=== PATIENT | male | born 1955 | race Caucasian/White ===

== ENCOUNTER → 2021-03-10 | Outpatient (CLI) | payer MEDICARE ==
[~2021-03-10] MED LIST: ASPIR-LOW81 MG PO; BACTRIM DS TAB1 EACH PO; CLARITIN10 M2 PO; COLACE100 MG PO; FENOFIBRATE145 MG PO; FISH OIL500 MG PO; FLOMAX0.4 MG PO; LEVEMIR100 UNIT/1 SQ; LINZESS145 MCG PO; LIPITOR TAB 2020 MG PO; LISINOPRIL10 MG PO; NABUMETONE500 MG PO; NEURONTIN 400400 MG PO; NITROGLYCERIN0.4 MG SL; NOVOLOG 10100 UNITS/ SQ; PERCOCET 10-321 EACH PO; PHILLIPS' COLO1 EACH PO; PLAVIX 75 MG TA75 MG PO; PREVACID30 MG PO; PROTONIX40 MG PO; SIMVASTATIN40 MG PO; TOPROL XL100 MG PO; TUDORZA PRESS400 MCG INH; VALIUM 5 MG TAB5 MG PO; VENTOLIN HFA 66.7 GM INH; VITAMIN C 500500 MG PO; ZINC SULFATE220 MG PO
== END ==
LOC: LBRF 15:44
DX: E11.628 Type 2 diabetes mellitus with other skin complications (principal); S91.301A Unspecified open wound, right foot, initial encounter
CPT/HCPCS: 87070; 87077; 87186; 87205

== ENCOUNTER → 2021-03-16 | Outpatient (CLI) | payer MEDICARE | LOC: KOH-I 03-15 11:15 | DX: Z01.818 Encounter for other preprocedural examination (principal); S90.921A Unspecified superficial injury of right foot, initial encounter; Z95.1 Presence of aortocoronary bypass graft | CPT/HCPCS: 93926 ==

== ENCOUNTER → 2021-05-04 | Outpatient (CLI) | payer MEDICARE | LOC: OPSV 07:00 | DX: E11.621 Type 2 diabetes mellitus with foot ulcer (principal); E11.40 Type 2 diabetes mellitus with diabetic neuropathy, unspecified; L97.519 Non-pressure chronic ulcer of other part of right foot with unspecified severity | CPT/HCPCS: Q4133 ==

== ENCOUNTER → 2021-05-19 | Outpatient (CLI) | payer MEDICARE | END | disposition home or self-care (01) | LOC: OPSV 07:00 | PROC: 0HRMXK3 Replacement of Right Foot Skin with Nonautologous Tissue Substitute, Full Thickness, External Approach (ICD-10-PCS; principal; 2021-05-19) | DX: E11.621 Type 2 diabetes mellitus with foot ulcer (principal); L97.412 Non-pressure chronic ulcer of right heel and midfoot with fat layer exposed; E11.40 Type 2 diabetes mellitus with diabetic neuropathy, unspecified | CPT/HCPCS: Q4133 ==

== ENCOUNTER → 2021-05-26 | Outpatient (CLI) | payer MEDICARE | LOC: OPSV 07:00 | DX: E11.621 Type 2 diabetes mellitus with foot ulcer (principal); L97.419 Non-pressure chronic ulcer of right heel and midfoot with unspecified severity | CPT/HCPCS: Q4133 ==

== ENCOUNTER → 2021-06-16 | Outpatient (CLI) | payer MEDICARE | LOC: OPSV 06:59 | DX: E11.621 Type 2 diabetes mellitus with foot ulcer (principal); L97.411 Non-pressure chronic ulcer of right heel and midfoot limited to breakdown of skin; L97.421 Non-pressure chronic ulcer of left heel and midfoot limited to breakdown of skin | CPT/HCPCS: Q4133 ==

== ENCOUNTER → 2022-02-15 | Outpatient (CLI) | payer MEDICARE | LOC: KOH-I 14:06 | DX: I73.9 Peripheral vascular disease, unspecified (principal); M86.9 Osteomyelitis, unspecified; S91.301A Unspecified open wound, right foot, initial encounter; X58.XXXA Exposure to other specified factors, initial encounter; L03.115 Cellulitis of right lower limb; R93.6 Abnormal findings on diagnostic imaging of limbs | CPT/HCPCS: 73718; 93926 ==